=== PATIENT | male | born 1945 | race Hispanic/Latino ===

== ENCOUNTER 2020-12-16 09:00 | Observation (INO) | payer MEDICARE ==
[~2020-12-16] VITALS: Ht 167.6 cm; Wt 65.3 kg
[2020-12-16 10:51] LABS: EOSINOPHILS % (AUTO) 2.4 % (0.0-8.0); HEMATOCRIT 43.4 % (42-54); LYMPHOCYTES % (AUTO) 31.5 % (21.0-51.0); MEAN CORPUSCULAR HEMOGLOBIN 30.4 pg (27.0-33.0); MEAN CORPUSCULAR HGB CONC 32.9 g/dL (32.0-36.0); MEAN CORPUSCULAR VOLUME 92.1 fL (79-99); MONOCYTES % (AUTO) 9.3 % (3.0-13.0); NEUTROPHILS % (AUTO) 55.5 % (40.0-77.0); PLATELET COUNT (AUTO) 264 K/uL (130-400); RED BLOOD CELL COUNT(AUTO) 4.71 MIL/uL (4.50-6.20); RED CELL DISTRIBUTION WIDTH 13.2 % (11.0-15.5); WHITE BLOOD COUNT (AUTO) 6.1 K/uL (4.8-10.8)
[2020-12-16 11:01] LABS: POTASSIUM 4.4 mmol/L (3.5-5.1)
[2020-12-20 09:51] VITALS: BP 166/79
[2020-12-20] MEDS ORDERED: NIFE30TA98 PO (10:13)
[2020-12-20] MEDS ORDERED: DONE5TAB33 PO (10:13)
[2020-12-22] VITALS (22 sets, daily range): BP systolic 102–154; BP diastolic 52–91
[2020-12-22] MEDS: CEFAZOLIN SODIUM 1 GM VIAL IVP SCH ×4 (06:20→18:35)
[2020-12-22] MEDS ORDERED: LACTATED RINGERS 1000ML 1,000 ML IV ONE (06:23)
[2020-12-22] MEDS ORDERED: MORPHINE PF 100MG/10ML AMP IV ONE (06:40)
[2020-12-22] MEDS ORDERED: CEFAZOLIN SODIUM 1 GM VIAL ONE (06:40)
[2020-12-22] MEDS ORDERED: THROMBIN-JMI 20000 UNIT KIT TP ONE (06:41)
[2020-12-22] MEDS ORDERED: SUCCINYLCHOLINE CHLORIDE 20 MG/ML 10 ML VIAL ONE (06:49)
[2020-12-22] MEDS ORDERED: PROPOFOL 10 MG/ML 20ML VIAL IV ONE (06:49)
[2020-12-22] MEDS ORDERED: LIDOCAINE PF 100MG/5ML (2%) SYRINGE 5ML ONE (06:49)
[2020-12-22] MEDS ORDERED: DEXAMETHASONE SOD PHOSPHATE 10MG/ML 1ML VIAL ONE (06:50)
[2020-12-22] MEDS ORDERED: ONDANSETRON 4MG INJ ONE (06:50)
[2020-12-22] MEDS ORDERED: MIDAZOLAM HCL 1 MG/ML 2ML VIAL ONE (06:50)
[2020-12-22] MEDS ORDERED: ROCURONIUM 10MG/1ML SYR 10 MG/ML ML ONE ×2 (06:50→08:06)
[2020-12-22] MEDS ORDERED: GLYCOPYRROLATE 1 MG/5 ML SYRINGE ONE (06:50)
[2020-12-22] MEDS ORDERED: NEOSTIGMINE 5MG/5ML SYR IV ONE (06:50)
[2020-12-22] MEDS ORDERED: FENTANYL CITRATE PF 50 MCG/1 ML 2ML VIAL ONE ×2 (06:51→09:42)
[2020-12-22] MEDS: BUPIVACAINE/EPI/PF 0.25% 30ML VIAL IJ SCH ×2 (07:00→08:01)
[2020-12-22] MEDS ORDERED: BUPIVACAINE/EPI/PF 0.25% 30ML VIAL IJ SCH (07:00)
[2020-12-22] MEDS ORDERED: EPHEDRINE SULFATE 50 MG/ML AMPULE ONE (07:52)
[2020-12-22] MEDS: DEXAMETHASONE SOD PHOSPHATE 4 MG/ML 1ML VIAL IVP SCH ×3 (11:00→22:15)
[2020-12-22] MEDS ORDERED: PROMETHAZINE HCL 25 MG/ML 1ML AMPULE IM PRN (11:00)
[2020-12-22] MEDS ORDERED: HYDROCODONE/ACETAMINOPHEN 5/325 MG TAB PO PRN (11:00)
[2020-12-22] MEDS ORDERED: MORPHINE 2 MG SYG IVP PRN (11:00)
[2020-12-22] MEDS ORDERED: 0.9%NACL 10ML VIAL IVP PRN (11:00)
[2020-12-22] MEDS: NIFEDIPINE ER 30 MG TAB PO SCH (11:00)
[2020-12-22] MEDS: LACTATED RINGERS 1000ML 1,000 ML IV SCH (11:00)
[2020-12-22] MEDS ORDERED: DONEPEZIL HCL 5 MG TAB PO SCH (21:00)
[2020-12-23] MEDS: LACTATED RINGERS 1000ML 1,000 ML IV SCH (00:20)
[2020-12-23] MEDS: CEFAZOLIN SODIUM 1 GM VIAL IVP SCH ×2 (03:30→06:03)
[2020-12-23 04:05] VITALS: BP 145/72
[2020-12-23] MEDS: DEXAMETHASONE SOD PHOSPHATE 4 MG/ML 1ML VIAL IVP SCH (06:02)
[2020-12-23 08:42] VITALS: BP 170/82
[2020-12-23] MEDS: NIFEDIPINE ER 30 MG TAB PO SCH (08:52)
== END 2020-12-23 12:45 | disposition home or self-care (01) ==
LOC: EDSTATUS 09:00 → DAHIP 12-22 06:16 → 3AH 12-22 12:27
PROVIDERS: ADMIT Neurological Surgery; ATTEND Neurological Surgery
DX: M48.061 Spinal stenosis, lumbar region without neurogenic claudication (principal); U07.1 COVID-19; I10 Essential (primary) hypertension; Z79.899 Other long term (current) drug therapy
CPT/HCPCS: 36415; 63047; 63048 ×3; 71045; 72020; 80051; 85025; 96361; 96374; 96375; 96376 ×2; A4215; A4221; A4222; A4223; A4344; A4600; A4649 ×4; A4663; A6260; G0378 ×25; J0330; J0690 ×4; J1100 ×5; J2001; J2250; J2274; J2405; J2704; J2710; J3010 ×2; J3490 ×3; J7030; J7120 ×3; U0003